=== PATIENT | male | born 1995 | race Caucasian/White ===

== ENCOUNTER 2020-11-27 02:16 | Emergency (ER) | payer BC, MEDICAID ==
[~2020-11-27] VITALS: Ht 180.3 cm; Wt 95.3 kg
[2020-11-27 02:21] VITALS: BP 113/69
--- NOTE | 2020-11-27 02:25 | NUR ---
PATIENT BIB [facility]. PATIENT EXAMINED BY DR. YANEZ. PATIENT MEDICALLY CLEARED AND RELEASED IN CUSTODY IN STABLE CONDITION. ORIGINAL PRE-BOOK FORM GIVEN TO OFFICER BREANNA, #[id number].
== END 2020-11-27 02:25 ==
LOC: MED 02:16
DX: F10.129 Alcohol abuse with intoxication, unspecified (principal); Z02.89 Encounter for other administrative examinations; V98.8XXA Other specified transport accidents, initial encounter; Y93.89 Activity, other specified; Y92.89 Other specified places as the place of occurrence of the external cause; Y99.8 Other external cause status; Y90.9 Presence of alcohol in blood, level not specified
CPT/HCPCS: 99283